=== PATIENT | male | born 1935 | race Caucasian/White ===

== ENCOUNTER 2017-01-15 02:47 | Observation (INO) | payer OTHER ==
--- NOTE | 2017-01-15 03:01 | CPEKG ---
Heart Rate: 69 RR Interval: 870 P-R Interval: 128 QRSD Interval: 88 QT Interval: 388 QTC Interval: 416 P [place]: 65 QRS [place]: -6 T Wave [place]: 15 EKG Severity - BORDERLINE ECG - EKG Impression: SINUS RHYTHM EKG Impression: BORDERLINE ST ELEVATION, ANTEROLATERAL LEADS Electronically Signed By: Caridad García 15-Jan-2017 09:14:12
--- NOTE | 2017-01-15 03:01 | EDPHY ---
H & P Time Seen by Provider: 01/15/17 02:58 HPI/ROS: HPI The patient presents with Chest pain which began at about 8 or 9:00 p.m. last night which occurred while sitting and has been constant ever since. It was initially severe though improved over the course of the evening and is now mild. The pain is worse with deep breaths, it does not radiate, it is described as an ache. He has never had pain like this before.He denies any nausea or vomiting. He denies any dizziness. REVIEW OF SYSTEMS Constitutional: No fever, no chills. Eyes: No discharge. ENT: No sore throat. Cardiovascular: + chest pain, no palpitations. Respiratory: No cough, no shortness of breath. Gastrointestinal: No abdominal pain, no vomiting. Genitourinary: No hematuria. Musculoskeletal: No back pain. Skin: No rashes. Neurological: No headache. PMHx: CAD with stent in place Had cardiac catheterization performed in November of 2014 which revealed CAD without any stent-able lesions Soc Hx: lives at home with his PHYSICAL General Appearance: [Alert, no distress] Eyes: [Pupils equal and round no pallor or injection] ENT, Mouth: [Mucous membranes moist] Respiratory: [There are no retractions, lungs are clear to auscultation] Cardiovascular: [ Regular rate and rhythm ] Gastrointestinal: [ Abdomen is soft and non-tender, no masses, bowel sounds normal ] Neurological: [ A&O, moves all extremities] Skin: [ Warm and dry, no rashes] Musculoskeletal: [Neck is supple non tender ] Extremities: [symmetrical, full range of motion ] Psychiatric: [ Patient is oriented X 3, there is no agitation ] Source: Patient, EMS - Personal History Tetanus Vaccine Date: 2010 - Medical/Surgical History Hx Cardiac Disease: Yes Other PMH: [place] stents. high cholesterol. back surgery. COPD - Social History Smoking Status: Former smoker Constitutional: Initial Vital Signs Temperature (C) 37 C 01/15/17 02:52 Heart Rate 78 01/15/17 02:52 Respiratory Rate 20 01/15/17 02:52 Blood Pressure 144/91 H 01/15/17 02:52 O2 Sat (%) 93 01/15/17 02:52 O2 Delivery Mode Nasal Cannula O2 (L/minute) 2 Allergies/Adverse Reactions: No Known Allergies Allergy (Verified 01/15/17 03:02) Home Medications: Medication Instructions Recorded Albuterol [Proventil Inhaler] 2 puffs IH BID 07/07/13 Levothyroxine [Synthroid 125 mcg 125 mcg PO DAILY06 07/07/13 (RX)] Mometasone/Formoterol [Dulera 200 2 puffs IH BID 07/07/13 Mcg/5 Mcg Inhaler] Aspirin [Aspirin 81mg (OTC)] 81 mg PO DAILY 11/06/14 Nitrostat 0.4 mg (*) 01/15/17 Ocuvite Eye + Multi Tablet 01/15/17 Pravastatin Sodium 01/15/17 Tamsulosin HCl 01/15/17 Medical Decision Making - Diagnostics EKG Interpretation: EKG: Complete interpretation has been separately recorded in the [employer] archive. Summary impression: diffuse upsloping ST segment elevations Imaging: chest x-ray one view shows no acute disease, interpreted by me, radiology interpretation is pending. ED Course/Re-evaluation: I met the paramedics at the bedside to obtain report, the patient received nitroglycerin and aspirin prior to arrival. His pain is improving. EKG was checked and shows diffuse ST segment elevations which are upsloping, this is a change from the patient's prior EKG which was reviewed by me. I was able to obtain old records from [facility] in [place] which show cardiac catheterization was performed in November of 2014 and demonstrated diffuse coronary artery disease, no stents were placed. Dr. Dominguez came to the emergency room to consult on the patient. He plans to take him emergently to the oil field laborer based on patient's history and EKG findings. We have discussed the case and the patient will be transferred. Differential Diagnosis: This is a 81-year-old male with history of CAD with LAD stent in place who presents brought in by ambulance for chest pain. on exam, he has normal vital signs, his chest pain is mostly improved, he has a normal physical exam. He comes in as a cardiac alert. Differential diagnosis includes ACS, dissection, GERD, pulmonary embolism. - Data Points Laboratory Results: Laboratory Results 01/15/17 02:55 01/15/17 02:55 01/15/17 01/15/17 02:55 02:55 WBC 8.89 10^3/uL 10^3/uL (3.80-9.50) RBC 4.94 10^6/uL 10^6/uL (4.40-6.38) Hgb 18.3 g/dL H g/dL (13.7-17.5) Hct 52.6 % H % (40.0-51.0) MCV 106.5 fL H fL (81.5-99.8) MCH 37.0 pg H pg (27.9-34.1) MCHC 34.8 g/dL g/dL (32.4-36.7) RDW 14.6 % % (11.5-15.2) Plt Count 125 10^3/uL L 10^3/uL (150-400) MPV 10.4 fL fL (8.7-11.7) Neut % (Auto) 76.0 % H % (39.3-74.2) Lymph % (Auto) 10.9 % L % (15.0-45.0) Caroline % (Auto) 11.2 % % (4.5-13.0) Eos % (Auto) 0.9 % % (0.6-7.6) Baso % (Auto) 0.6 % % (0.3-1.7) Nucleat RBC Rel Count 0.0 % % (0.0-0.2) Absolute Neuts (auto) 6.75 10^3/uL H 10^3/uL (1.70-6.50) Absolute Lymphs (auto) 0.97 10^3/uL L 10^3/uL (1.00-3.00) Absolute Monos (auto) 1.00 10^3/uL H 10^3/uL (0.30-0.80) Absolute Eos (auto) 0.08 10^3/uL 10^3/uL (0.03-0.40) Absolute Basos (auto) 0.05 10^3/uL 10^3/uL (0.02-0.10) Absolute Nucleated RBC 0.00 10^3/uL 10^3/uL (0-0.01) Immature Gran % 0.4 % % (0.0-1.1) Immature Gran # 0.04 10^3/uL 10^3/uL (0.00-0.10) Sodium 143 mEq/L mEq/L (134-144) Potassium 3.9 mEq/L mEq/L (3.5-5.2) Chloride 107 mEq/L mEq/L (97-110) Carbon Dioxide 26 mEq/l mEq/l (22-31) Anion Gap 10 mEq/L mEq/L (8-16) BUN 24 mg/dL H mg/dL (7-23) Creatinine 1.1 mg/dL mg/dL (0.7-1.3) Estimated GFR > 60 Glucose 85 mg/dL mg/dL (70-100) Calcium 8.6 mg/dL mg/dL (8.5-10.4) Troponin I 0.012 ng/mL ng/mL (0-0.034) Departure - Departure Disposition: To OP Cath/Surgery Clinical Impression: Acute coronary syndrome Chest pain Qualifiers: Chest pain type: unspecified Qualified Code(s): R07.9 - Chest pain, unspecified Condition: Fair
[2017-01-15] MEDS ORDERED: MIDAZOLAM 2 MG/2 ML VIAL ONE (03:06)
[2017-01-15] MEDS ORDERED: LIDOCAINE 1% 30 ML SDV ONE (03:06)
[2017-01-15] MEDS ORDERED: fentaNYL 100 MCG/2 ML INJ ONE (03:06)
--- NOTE | 2017-01-15 03:09 | CPEKG ---
Heart Rate: 71 RR Interval: 845 P-R Interval: 144 QRSD Interval: 88 QT Interval: 396 QTC Interval: 431 P [place]: 68 QRS [place]: -6 T Wave [place]: 6 EKG Severity - ABNORMAL ECG - EKG Impression: SINUS RHYTHM EKG Impression: ATRIAL PREMATURE COMPLEX EKG Impression: ST ELEVATION DIFFUSELY Electronically Signed By: Caridad García 15-Jan-2017 09:14:03
[2017-01-15 03:11] LABS: % IMMATURE GRANULYOCYTES 0.4 % (0.0-1.1); ABSOLUTE IMMATURE GRANULOCYTES 0.04 10^3/uL (0.00-0.10); ADD DIFF? NO; ADD MORPH? NO; ADD SCAN? NO; ATYPICAL LYMPHOCYTE FLAG 10 (0-99); FRAGMENT RBC FLAG 0 (0-99); HEMATOCRIT 52.6 % (40.0-51.0); HEMOGLOBIN 18.3 g/dL (13.7-17.5); LEFT SHIFT FLG 0 (0-99); LIPEMIA HEMOLYSIS FLAG 90 (0-99); MEAN CELL HEMOGLOBIN CONCENTR. 34.8 g/dL (32.4-36.7); MEAN CELL VOLUME 106.5 fL (81.5-99.8); MEAN PLATELET VOLUME 10.4 fL (8.7-11.7); PLATELET CLUMPS FLAG 10 (0-99); PLATELET COUNT 125 10^3/uL (150-400); RED BLOOD CELL COUNT 4.94 10^6/uL (4.40-6.38); RED CELL DISTRIBUTION WIDTH 14.6 % (11.5-15.2)
[2017-01-15 03:18] LABS: ANION GAP 10 mEq/L (8-16); CALCIUM 8.6 mg/dL (8.5-10.4); CARBON DIOXIDE 26 mEq/l (22-31); CHLORIDE 107 mEq/L (97-110); CREATININE 1.1 mg/dL (0.7-1.3); GLOMERULAR FILTRATION RATE > 60; GLUCOSE 85 mg/dL (70-100); POTASSIUM 3.9 mEq/L (3.5-5.2); SODIUM 143 mEq/L (134-144)
[2017-01-15] MEDS ORDERED: HEPARIN 10,000 UNIT/10 ML MDV ONE (03:38)
[2017-01-15] MEDS ORDERED: VERAPAMIL 5 MG/2 ML VIAL ONE ×2 (03:38→03:41)
[2017-01-15 03:45] LABS: TROPONIN I 0.012 ng/mL (0-0.034)
[2017-01-15] MEDS ORDERED: OXYCODONE/APAP 5/325 TAB PO PRN (03:58)
[2017-01-15] MEDS ORDERED: NITROGLYCERIN 0.4 MG BTL SL PRN (03:58)
[2017-01-15] MEDS ORDERED: ATROPINE SULFATE 1 MG/10 ML SYR IVP PRN (03:58)
[2017-01-15] MEDS ORDERED: ONDANSETRON 4 MG/2 ML VIAL IVP PRN (03:58)
[2017-01-15] MEDS ORDERED: HYDROCODONE/APAP 5/325 TAB PO PRN (03:58)
[2017-01-15] MEDS ORDERED: PANTOPRAZOLE SODIUM 40 MG TAB PO ONE (04:11)
--- NOTE | 2017-01-15 04:31 | CPIP ---
[f rep st] INVASIVE CARDIAC PROCEDURE DATE OF PROCEDURE: 01/15/2017 INDICATIONS: A 81-year-old man, with known coronary disease. Previous LAD stent in 2013. Now pres enting with sudden onset of substernal chest pain after drinking coffee. This was called as an ST-s egment elevation myocardial infarction by paramedics in the field, and cardiac alert was activated. The patient's pain has waxed and waned but is still present, but much less severe than previous. PROCEDURE PERFORMED: Left heart catheterization with left ventricular and selective coronary angiog herman via right radial approach. DESCRIPTION: Risks, benefits, and alternatives were described in detail and discussed with the marlene ent, and informed consent was obtained. Ritesh's test was performed and was normal. Patient was bro ught to the catheterization laboratory where a time-out was performed. Right wrist was sterilely pr epped and draped. 2% lidocaine utilized for local anesthetic. Six-Italian slender sheath placed rig ht radial utilizing micropuncture technique. Intra-arterial verapamil and intravenous heparin were administered. All catheters were exchanged over exchange length guidewire. 6-Italian JL4 and JR4 di agnostic catheters were utilized for coronary angiography, and pigtail catheter for left heart luis terization and left ventricular angiography. Sheath was removed and TR band was placed. HEMODYNAMICS: Please see cath lab tech flow sheet. LEFT VENTRICLE: The left ventricle is normal in size and shape. There were frequent PVCs but segme ntal wall motion appears normal, with ejection fraction of greater than 65%. No filling defects or significant mitral regurgitation. The aortic root and ascending aorta show some calcification, but no obvious dilation, aneurysm, or dissection. CORONARY ANGIOGRAPHY: Left main: The left main is a short large bifurcating vessel without signifi cant disease. Left anterior descending: The left anterior descending is a large vessel continuing all the way yunier und the apex, extending to the distal inferior wall. There is a mid stent that is widely patent. T here is a moderate proximal diagonal branch, 3 small to moderate mid diagonal branches, and a series of very small distal diagonal branches. The LAD has calcification and mild luminal irregularities, but no significant stenoses. The 1st diagonal branch has up to 40% to 50% proximal disease, but no other significant disease in the diagonal branches. Circumflex: This is a dominant vessel with a moderately large 1st obtuse marginal branch, a small t o moderate 2nd obtuse marginal branch, a large posterolateral branch, and a moderate posterior desce nding branch. The circumflex and its branches have calcified luminal irregularities up to 30%, but no significant stenoses. Right coronary: Moderate nondominant vessel with mild disease. IMPRESSION: 1. Elevated left ventricular end-diastolic pressure. 2. Normal left ventricular systolic function and segmental wall motion. 3. Patent left anterior descending stent. 4. Mild to moderate coronary disease and other branches and vessels without any significant stenose s. 5. No evidence of acute myocardial infarction. PLAN: 1. Hospital admission. 2. Check D-dimer due to history of pulmonary embolus. 3. Hospitalist consultation. 4. Aggressive risk modification. /[id number]/MODL
[2017-01-15 05:17] LABS: HEMATOCRIT 50.8 % (40.0-51.0)
[2017-01-15 05:55] LABS: ALANINE AMINOTRANSFERASE 39 IU/L (21-72); ALBUMIN 3.7 g/dL (3.5-5.0); ALKALINE PHOSPHATASE 54 IU/L (38-126); ASPARTATE AMINOTRANSFERASE 46 IU/L (17-59); BILIRUBIN,TOTAL 2.1 mg/dL (0.1-1.4); BILIRUBIN-CONJUGATED 0.5 mg/dL (0.0-0.5); BILIRUBIN-UNCONJUGATED 1.6 mg/dL (0.0-1.1); C-REACTIVE PROTEIN 54.6 mg/L (<10.0); CHOLESTEROL 132 mg/dL (140-220); CHOLESTEROL/HDL RATIO 2.93 RATIO (1.00-4.97); HIGH DENSITY LIPOPROTEIN 45 mg/dL (40-65); LDL/HDL RATIO 1.76 RATIO (1.00-3.64); LOW DENSITY LIPOPROTEIN 79 mg/dL (80-100); NON-HIGH DENSITY LIPOPROTEIN 87 mg/dL (90-129); TRIGLYCERIDE 43 mg/dL (40-150); VERY LOW DENSITY LIPOPROTEINS 8 mg/dL (8-25)
[2017-01-15 06:05] LABS: TROPONIN I 0.014 ng/mL (0-0.034)
[2017-01-15 06:10] LABS: CREATINE KINASE-MB FRACTION 3.59 ng/mL (0-3.19)
[2017-01-15 06:24] LABS: CK-MB INTERPRETATION NEGATIVE (NEGATIVE)
--- NOTE | 2017-01-15 06:47 | PDGENHP ---
History and Physical - Chief Complaint chest pain - History of Present Illness Patient is a 81-year-old male with a history of COPD, hypertension, hyperlipidemia and CAD (PCI in 2012) who presents to the ED with complaint of sharp chest pain. He states for the past 3 days he has been eating a low carb high fat / protein diet in an attempt to lose weight. Last night after dinner he also had a black coffee which is unusual for him. At around 8:00 p.m. he began noticing mid chest pain which she describes as sharp, worse with deep inspiration. The pain persisted throughout the night and by 2:00 a.m. was severe in nature so he decided to call EMS. Denies any associated dizziness, lightheadedness, palpitations, shortness of breath, nausea, diaphoresis. His EMS EKG was concerning so he was brought to the ED as a cardiac alert. On arrival to the ED patient was hemodynamically stable. Labs including CBC, BMP , troponin and ddimer were unremarkable. He was brought to the cardiac labor supervisor where he underwent catheterization via his right radial artery. Catheterization did not reveal any occlusive coronary disease. He was transferred to the telemetry floor with Hospital Medicine admission. History Information - Allergies/Home Medication List Allergies/Adverse Reactions: No Known Allergies Allergy (Verified 01/15/17 03:02) Home Medications: Albuterol [Proventil Inhaler] 2 puffs IH BID 07/07/13 [Last Taken 07/07/13 22:00 ] Levothyroxine [Synthroid 125 mcg (RX)] 125 mcg PO DAILY06 07/07/13 [Last Taken 07/07/13 06:00] Mometasone/Formoterol [Dulera 200 Mcg/5 Mcg Inhaler] 2 puffs IH BID 07/07/13 [ Last Taken 07/07/13 22:00] Aspirin [Aspirin 81mg (OTC)] 81 mg PO DAILY 11/06/14 [Last Taken Unknown] Nitrostat 0.4 mg (*) 01/15/17 [Last Taken Unknown] Ocuvite Eye + Multi Tablet 01/15/17 [Last Taken Unknown] Pravastatin Sodium 01/15/17 [Last Taken Unknown] Tamsulosin HCl 01/15/17 [Last Taken Unknown] I have personally reviewed and updated: family history, medical history, social history, surgical history - Past Medical History Additional medical history: COPD. hypertension. hyperlipidemia. CAD S/P PCI 2012. history of pulmonary embolism. history of atrial fibrillation S/P ablation, has been off systemic anticoagulation for about 3 years after recurrent epistaxis - Surgical History Additional surgical history: lumbar surgery - Family History Positive for: non-pertinent - Social History Smoking Status: Former smoker (smoked briefly in his 20s) Alcohol Use: Rarely Drug Use: None Additional social history: Patient lives independently with his , walks with a cane. Review of Systems ROS: 10pt was reviewed & negative except for what was stated in HPI & below Physical Exam Temp Pulse Resp BP Pulse Ox 36.8 C 68 25 H 137/78 H 94 01/15/17 04:13 01/15/17 06:00 01/15/17 06:00 01/15/17 06:00 01/15/17 06:00 O2 (L/minute) 2 Constitutional: no apparent distress, appears nourished, not in pain Eyes: PERRL, anicteric sclera, EOMI Ears, Nose, Mouth, Throat: moist mucous membranes, hearing normal, ears appear normal, no oral mucosal ulcers Cardiovascular: regular rate and rhythym, no murmur, rub, or gallop, pulses symmetric bilaterally, No JVD, No edema Peripheral Pulses: 2+: dorsalis-pedis (R), dorsalis-pedis (L) Respiratory: no respiratory distress, no rales or rhonchi, clear to auscultation Gastrointestinal: normoactive bowel sounds, soft, non-tender abdomen, no palpable masses Genitourinary: no bladder fullness, no bladder tenderness Skin: warm, normal color, no rashes or abrasions, no fluctuance, no induration, other (R radial pressure dressing in place), No mottled Musculoskeletal: full muscle strength, no muscle tenderness, normal joint ROM, no joint effusions Neurologic: AAOx3, sensation intact bilaterally, CN II-XII Intact, No weakness, No numbness, No pronator drift, No facial droop Psychiatric: interacting appropriately, not anxious, not encephalopathic, thought process linear Lab Data & Imaging Review 01/15/17 05:05 01/15/17 02:55 WBC 8.89 10^3/uL (3.80-9.50) 01/15/17 02:55 RBC 4.94 10^6/uL (4.40-6.38) 01/15/17 02:55 Hgb 18.3 g/dL (13.7-17.5) H 01/15/17 02:55 Hct 50.8 % (40.0-51.0) 01/15/17 05:05 MCV 106.5 fL (81.5-99.8) H 01/15/17 02:55 MCH 37.0 pg (27.9-34.1) H 01/15/17 02:55 MCHC 34.8 g/dL (32.4-36.7) 01/15/17 02:55 RDW 14.6 % (11.5-15.2) 01/15/17 02:55 Plt Count 125 10^3/uL (150-400) L 01/15/17 02:55 MPV 10.4 fL (8.7-11.7) 01/15/17 02:55 Neut % (Auto) 76.0 % (39.3-74.2) H 01/15/17 02:55 Lymph % (Auto) 10.9 % (15.0-45.0) L 01/15/17 02:55 Mcpherson % (Auto) 11.2 % (4.5-13.0) 01/15/17 02:55 Eos % (Auto) 0.9 % (0.6-7.6) 01/15/17 02:55 Baso % (Auto) 0.6 % (0.3-1.7) 01/15/17 02:55 Nucleat RBC Rel Count 0.0 % (0.0-0.2) 01/15/17 02:55 Absolute Neuts (auto) 6.75 10^3/uL (1.70-6.50) H 01/15/17 02:55 Absolute Lymphs (auto) 0.97 10^3/uL (1.00-3.00) L 01/15/17 02:55 Absolute Monos (auto) 1.00 10^3/uL (0.30-0.80) H 01/15/17 02:55 Absolute Eos (auto) 0.08 10^3/uL (0.03-0.40) 01/15/17 02:55 Absolute Basos (auto) 0.05 10^3/uL (0.02-0.10) 01/15/17 02:55 Absolute Nucleated RBC 0.00 10^3/uL (0-0.01) 01/15/17 02:55 Immature Gran % 0.4 % (0.0-1.1) 01/15/17 02:55 Immature Gran # 0.04 10^3/uL (0.00-0.10) 01/15/17 02:55 ESR 8 MM/HR (0-20) 01/15/17 05:05 D-Dimer 0.47 ug/mLFEU (0.00-0.50) 01/15/17 05:05 Sodium 143 mEq/L (134-144) 01/15/17 02:55 Potassium 3.9 mEq/L (3.5-5.2) 01/15/17 02:55 Chloride 107 mEq/L (97-110) 01/15/17 02:55 Carbon Dioxide 26 mEq/l (22-31) 01/15/17 02:55 Anion Gap 10 mEq/L (8-16) 01/15/17 02:55 BUN 24 mg/dL (7-23) H 01/15/17 02:55 Creatinine 1.1 mg/dL (0.7-1.3) 01/15/17 02:55 Estimated GFR > 60 01/15/17 02:55 Glucose 85 mg/dL (70-100) 01/15/17 02:55 Calcium 8.6 mg/dL (8.5-10.4) 01/15/17 02:55 Total Bilirubin 2.1 mg/dL (0.1-1.4) H 01/15/17 05:05 Conjugated Bilirubin 0.5 mg/dL (0.0-0.5) 01/15/17 05:05 Unconjugated Bilirubin 1.6 mg/dL (0.0-1.1) H 01/15/17 05:05 AST 46 IU/L (17-59) 01/15/17 05:05 ALT 39 IU/L (21-72) 01/15/17 05:05 Alkaline Phosphatase 54 IU/L (38-126) 01/15/17 05:05 Creatine Kinase 112 IU/L (0-224) 01/15/17 05:05 CK-MB (CK-2) Fraction 3.59 ng/mL (0-3.19) H 01/15/17 05:05 CK-MB (CK-2) % 3.2 % (0.0-4.0) 01/15/17 05:05 Creatine Kinase Interp NEGATIVE (NEGATIVE) 01/15/17 05:05 Troponin I 0.014 ng/mL (0-0.034) 01/15/17 05:05 C-Reactive Protein 54.6 mg/L (<10.0) H 01/15/17 05:05 NT-Pro-B Natriuret Pep 403 pg/mL (0-450) 01/15/17 05:05 Total Protein 6.0 g/dL (6.3-8.2) L 01/15/17 05:05 Albumin 3.7 g/dL (3.5-5.0) 01/15/17 05:05 Triglycerides 43 mg/dL (40-150) 01/15/17 05:05 Cholesterol 132 mg/dL (140-220) L 01/15/17 05:05 Cholesterol Risk Factr 0.5 (0.2-1.0) 01/15/17 05:05 LDL Cholesterol, Calc 79 mg/dL (80-100) L 01/15/17 05:05 LDL Risk Factor 0.8 (0.2-1.0) 01/15/17 05:05 VLDL Cholesterol 8 mg/dL (8-25) 01/15/17 05:05 Non-HDL Cholesterol 87 mg/dL (90-129) L 01/15/17 05:05 HDL Cholesterol 45 mg/dL (40-65) 01/15/17 05:05 LDL/HDL Ratio 1.76 RATIO (1.00-3.64) 01/15/17 05:05 Cholesterol/HDL Ratio 2.93 RATIO (1.00-4.97) 01/15/17 05:05 Lipase 207.0 IU/L (23-300) 01/15/17 05:05 TSH 3.490 uIU/mL (0.465-4.680) 01/15/17 05:05 Visualized and Interpreted Chest x-ray results: Yes Chest X-Ray results: no infiltrate, normal Visualized and Interpreted EKG results: Yes EKG Interpretation: Positive for: normal sinsus rhythm (with upsloping ST segments diffusely) Assessment & Plan Assessment: patient is a 81-year-old male with history of known CAD, hypertension, hyperlipidemia and COPD who presents to the ED with substernal chest pain appears pleuritic in nature which has been waxing and waning after dinner and drinking coffee. Patient arrived to the ED as a cardiac alert, underwent cardiac catheterization which revealed nonobstructive coronary artery disease. Plan: # chest pain Patient is symptoms and EKG were concerning for acute coronary syndrome so he was taken directly to the labor supervisor. Cardiac catheterization reveals nonobstructive coronary disease, with widely patent LAD stent. Troponins have remained negative x2. D-dimer is also negative, which has ruled out pulmonary embolism. Suspect symptoms are related to a GI etiology, as patient reports symptoms started after drinking black coffee and also reports recent high protein/fat and low carb diet. Will give PPI trial and monitor symptoms. Will also need to f/u official CXR read to r/o pulmonary infection/process, although low suspicion as patient has no respiratory symptoms, no leukocytosis and is afebrile. # COPD Respiratory status stable, confirm and continue home meds. # h/o atrial fibrillation s/p ablation Patient in NSR, reports has been in sinus rhythm since ablation and was taken off systemic anticoagulation several years ago due to recurrent epistaxis. Will confirm and continue home meds. # h/o pulmonary embolism Off systemic anticoagulation. D-dimer is negative, so low suspicion for PE as cause of his presenting symptoms. # chronic hypertension Cont home meds. # dispo: admit under observation # full code
[2017-01-15 08:54] VITALS: TEMP 97.7
[2017-01-15] MEDS ORDERED: MAALOX/LIDO/HYOSC GI COCKTAIL 55 ML BOTTLE PO ONE (11:13)
[2017-01-15] MEDS ORDERED: ALBUTEROL 60 PUFFS/8 GM MDI IH PRN (11:13)
[2017-01-15] MEDS ORDERED: TRIAMCINOLONE 0.025% 15 GM OINTTUBE TP PRN (11:13)
[2017-01-15] MEDS ORDERED: TAMSULOSIN HCL 0.4 MG CAP PO SCH (11:30)
[2017-01-15] MEDS ORDERED: PANTOPRAZOLE SODIUM 40 MG TAB PO SCH (11:30)
[2017-01-15 12:37] VITALS: BP 119/67; PULSE 83; RESP 20; O2SAT 91
--- NOTE | 2017-01-15 12:42 | ECHO ---
[id number] + + [address] : : [place] [address] : : [phone] + Adult Echocardiographic Report + -------+ :Name: CASS CHOWDHURY Date: 01/15/2017 10:04 AM BP: 128/74 mmH g : : Hospital Admission Number: [id number] Locati on: 247: :: 1935 Gender: Male Height: 75 in : :Age: 81 yrs Race: WH,White Weight: 252 lb : :Reason For Study: Continued chest pain after nl cath : : BSA: 2.4 meter s2 : :History: CP; nl cath : + -------+ MMode/2D Measurements \T\ Calculations IVSd: 1.1 cm LVIDd: 4.8 cm FS: 22.9 % Ao root diam: 2.9 cm LVPWd: 0.99 cm LVIDs: 3.7 cm EDV(Teich): 107.9 ml ESV(Teich): 58.3 ml EF(Teich): 46.0 % Normal Measurement Values: + + :LVIDd (3.5-5.7cm) IVSd (0.6-1.1cm) LVPWd (0.6-1.1cm) Aortic Root (2.0-3.7cm)Left Atrium (1.5-4.0cm): :LV Vol(d) (76-115ml) LV Vol(s) (29-48ml) Ejec Fraction (50-65%)PV Tommie (0.6- 1.2m/s) TV Tommie (0.4-1.0m/s) : :MV E Tommie (0.8-1.0m/s)MV A Tommie (0.3-1.0m/s)LVOT Tommie (0.7-1.2m/s) Asc Ao Tommie ( 0.9-1.8m/s) : + + Doppler Measurements \T\ Calculations MV E max tommie: Ao V2 max: LV V1 max: PA V2 max: 46.9 cm/sec 128.1 cm/sec 94.0 cm/sec 99.9 cm/sec MV A max tommie: Ao max P.6 mmHg LV V1 max PG: PA max P.6 cm/sec 3.5 mmHg 4.0 mmHg MV E/A: 0.70 MV dec time: 0.25 sec Left Ventricle The left ventricle is normal in size. There is mild concentric left ventricular hypertrophy. Left ventricular systolic function is low normal. Ejection Fraction = 45-50%. There is Doppler evidence for diastolic dysfunction. Regional wall motion abnormalities cannot be excluded due to limited visualization. Right Ventricle The right ventricle is not well visualized. The right ventricle is grossly normal size. Atria The left atrial size is normal. Right atrial size is normal. A dilated inferior vena cava suggests increased right atrial pressure. Mitral Valve The mitral valve is normal in structure and function. There is no mitral valve stenosis. There is no mitral regurgitation noted. Tricuspid Valve The tricuspid valve is normal in structure and function. There is no tricuspid stenosis. No tricuspid regurgitation. Aortic Valve The aortic valve is trileaflet. There is no aortic stenosis. There is no aortic insufficiency. Pulmonic Valve The pulmonic valve is normal in structure and function. Trace pulmonic valvular regurgitation. Great Vessels The aortic root is normal size. Pericardium/Pleural trivial pericardial effusion. Conclusion A two-dimensional transthoracic echocardiogram with M-mode and Doppler was performed. The study was technically difficult. Left ventricular systolic function is low normal. Ejection Fraction = 45-50%. There is Doppler evidence for diastolic dysfunction. There is mild concentric left ventricular hypertrophy. Trace pulmonic valvular regurgitation. trivial pericardial effusion. Final Reading Physician: David Ford signed on 01/15/2017 12:40 PM Ordering Physician: ALLYN BRADSHAW Performed By: Jenn Giron
[2017-01-15] MEDS ORDERED: KETOROLAC 30 MG/1 ML SDV IVP ONE (12:53)
--- NOTE | 2017-01-15 17:30 | PDDCSUM ---
Discharge Summary Discharge Summary: Dates of service: 01/15/2017 Discharge dx: # chest pain # ? pericarditis # gerd # CAD # h/o a fib # h/o PE Consultations: cardiology Procedures performed: left heart cath Hospital course by problem: # chest pain: concerning for unstable angina, trops neg and no sig ecg changes, take to cath with patent vessels, patent stent. ? mild pericarditis and pain improved with toradol. Dc with short course of toradol, f/u with cardiology # pericarditis: as above, exam not clearly c/w this dx however did have trivial pericardial effusion and improved sxs with nsaids. Will tx as such for now. No e /o chf or other acute issues related to same # gerd: also possibly contributing to acute presentation, started on ppi # CAD: as above, repeat cath showing widely patent lad stent, no significant new disease # h/o a fib/h/o PE: rate controlled, not on AC, dimer negative essentially ruling out PE DC home, f/u with Bo[facility] GROSSMAN and cardiology > 35 minutes spent in dc more than half in face to face counseling of patient and his regarding f/u care plans and likely etiology for chest pain
[2017-01-15] MEDS ORDERED: NON-FORMULARY NEW DRUG (Mometasone/Formoterol [Dulera 200 Mcg/5 Mcg Inhaler] 2 PUFFS) IH SCH (21:00)
[2017-01-15] MEDS ORDERED: DULERA IH SCH (21:00)
[2017-01-16] MEDS ORDERED: LEVOTHYROXINE 125 MCG TAB PO SCH (06:00)
[2017-01-16] MEDS ORDERED: PRAVASTATIN SODIUM 40 MG TAB PO SCH (09:00)
[2017-01-16] MEDS ORDERED: ASPIRIN 81 MG CHEWABLE TAB PO SCH (09:00)
[2017-01-16] MEDS ORDERED: PRESERVISION AREDS2 FORMULA EYE VIT 1 EACH PO SCH (09:00)
[2017-01-16] MEDS ORDERED: MULTIVITAMINS 1 EACH TAB PO SCH (09:00)
== END 2017-01-15 14:00 | disposition home or self-care (01) ==
LOC: EDUNIT# → EDBD → INTOOBSV 03:23 → F2N 03:50
PROVIDERS: ADMIT Internal Medicine Interventional Cardiology; ATTEND Internal Medicine
PROC: 4A023N7 Measurement of Cardiac Sampling and Pressure, Left Heart, Percutaneous Approach (ICD-10-PCS; principal; 2017-01-15)
PROC: B2111ZZ Fluoroscopy of Multiple Coronary Arteries using Low Osmolar Contrast (ICD-10-PCS; principal; 2017-01-15)
PROC: B2151ZZ Fluoroscopy of Left Heart using Low Osmolar Contrast (ICD-10-PCS; principal; 2017-01-15)
DX: R07.9 Chest pain, unspecified (principal); K21.9 Gastro-esophageal reflux disease without esophagitis; I25.10 Atherosclerotic heart disease of native coronary artery without angina pectoris; I51.7 Cardiomegaly; J44.9 Chronic obstructive pulmonary disease, unspecified; E78.5 Hyperlipidemia, unspecified; Z86.711 Personal history of pulmonary embolism; Z87.891 Personal history of nicotine dependence; Z86.79 Personal history of other diseases of the circulatory system; Z95.5 Presence of coronary angioplasty implant and graft
CPT/HCPCS: 71010; 93005; 93306; 93458; G0378; J1644; J1885; J2250; J3010

== ENCOUNTER 2018-07-31 14:48 | Inpatient (IN) | payer OTHER ==
[2018-07-31] MEDS ORDERED: NS 500 ML IV ONE ×2 (14:58→16:05)
--- NOTE | 2018-07-31 15:16 | EDPHY ---
H & P Stated Complaint: near syncope c epistaxis Time Seen by Provider: 07/31/18 14:53 HPI/ROS: CHIEF COMPLAINT: Epistaxis, near syncope HISTORY OF PRESENT ILLNESS: 83-year-old male presents after a near syncopal episode. He had an episode of epistaxis this morning at home and lost a significant amount of blood. He packed his nose with a cotton ball and placed nasal clip. The bleeding stopped. As he was getting off the couch just prior to arrival, he became very dizzy and weak and almost fainted. On EMS arrival, unable to obtain a blood pressure and he was very pale. No active epistaxis. He is currently feeling better, but continues to feel weak. History of multiple prior episodes of epistaxis related to Coumadin, now off Coumadin and only takes an aspirin daily. No black stool, bloody stool, recent illness, chest pain or shortness of breath. REVIEW OF SYSTEMS: complete 10 point ROS reviewed and is negative except for the noted elements in the HPI - Personal History Current Tetanus/Diphtheria Vaccine: Yes Tetanus Vaccine Date: 2010 - Medical/Surgical History Hx Asthma: Yes Hx Chronic Respiratory Disease: Yes Hx Diabetes: No Hx Cardiac Disease: Yes Hx Renal Disease: No Hx Cirrhosis: No Hx Alcoholism: No Hx HIV/AIDS: No Hx Splenectomy or Spleen Trauma: No Other PMH: OR stents. high cholesterol. back surgery. COPD - Social History Smoking Status: Former smoker Alcohol Use: Sober Additional Social History: - Physical Exam Exam: General Appearance: Alert, pleasant, talkative Eyes: Pupils equal and round, no conjunctival pallor or injection ENT, Mouth: Packing in left nostril and nasal clip in place Mucous membranes moist Neck: Normal inspection Respiratory: Rales at the bases Cardiovascular: Regular rate and rhythm Gastrointestinal: Abdomen is soft and nontender Neurological: A&O, nonfocal exam Skin: Warm and dry Extremities: Bilateral pedal edema Psychiatric: Mood and affect normal Constitutional: Initial Vital Signs Heart Rate 74 07/31/18 15:00 Respiratory Rate 18 07/31/18 15:00 Blood Pressure 90/64 L 07/31/18 15:00 O2 Sat (%) 97 07/31/18 15:00 O2 Delivery Mode Room Air O2 (L/minute) 8 Allergies/Adverse Reactions: No Known Allergies Allergy (Verified 07/31/18 15:00) Home Medications: Medication Instructions Recorded Levothyroxine [Synthroid 125 mcg 125 mcg PO DAILY06 07/07/13 (*)] Aspirin [Aspirin 81mg (*)] 81 mg PO DAILY 11/06/14 Albuterol [Proventil Inhaler HFA 1 - 2 puffs IH DAILY PRN 01/15/17 (*)] C/E/Zn/Cu/OM3/DHA/EPA/LUT/ZEAX 2 each PO DAILY 01/15/17 [Preservision Areds 2 Softgel] Nitroglycerin [Nitrostat 0.4 mg 0.4 mg SL Q5M PRN 01/15/17 (*)] Tamsulosin HCl [Flomax 0.4 MG (*)] 0.4 mg PO BID 01/15/17 Cyanocobalamin [Vitamin B12 (*)] 1,000 mcg PO DAILY 07/31/18 Digoxin [Lanoxin 0.125 mg] 0.125 mg PO HS 07/31/18 Fluticasone/Salmeter 500/50Mcg 1 puffs IH BID 07/31/18 [Advair 500/50 (*)] Lisinopril [Zestril 5 mg (*)] 5 mg PO DAILY 07/31/18 Metoprolol Succinate Xr [Toprol Xl 50 mg PO DAILY 07/31/18 50 mg (*)] Rosuvastatin Calcium [Crestor 20mg 20 mg PO DAILY 07/31/18 (*)] Spironolactone [Aldactone 25 MG 12.5 mg PO DAILY 07/31/18 (*)] buPROPion XL [Wellbutrin 150mg XL] 150 mg PO DAILY 07/31/18 predniSONE 2 mg PO DAILY 07/31/18 predniSONE 5 mg PO DAILY 07/31/18 Medical Decision Making - Diagnostics EKG Interpretation: EKG interpreted by me reveals normal sinus rhythm, rate 77, multiple PACs, no ST or T segment changes. Interpretation: Borderline EKG Imaging Results: Chest X-Ray 07/31/18 14:58 Impression: Patchy bilateral lower lung interstitial thickening/scarring. Cardiomegaly. Stable chest. Imaging: I viewed and interpreted images myself ED Course/Re-evaluation: This patient presents with a near syncopal episode after epistaxis this morning. Initial blood pressure is 93/67. IV normal saline 500 mL given. I removed the nasal packing and the pt blew a large clot out of his nose. No obvious site of bleeding and no active bleeding. I placed a long Merocel pack in the left nares. Will observe. 1600: remains hypotensive, 97/58, after IV NS 500ml. Will repeat 500ml NS bolus. After 2nd bolus, the patient was up to the bathroom and felt dizzy with ambulation. He continues to be slightly hypotensive. This is most likely secondary to the epistaxis this morning. There is no evidence acute illness, acute coronary syndrome, GI bleed or other etiology for hypotension. The hospitalist service was consulted for admission for observation. Differential Diagnosis: Includes though not limited to blood loss, infection, acute coronary syndrome, pulmonary embolism - Data Points Laboratory Results: Laboratory Results 08/01/18 04:02 08/01/18 04:02 Medications Given: Discontinued Medications Albuterol Sulfate (Proair Hfa Anes Only) 1 - 2 puffs IH DAILY PRN PRN Reason: Short of Breath/Dyspnea Stop: 01/27/19 18:25 Last Admin: 08/01/18 09:02 Dose: 1 puffs Albuterol/Ipratropium (Duoneb) 3 ml IH QID RAMESH Stop: 01/27/19 20:59 Last Admin: 07/31/18 20:53 Dose: 3 ml Aspirin (Aspirin) 81 mg PO DAILY RAMESH Stop: 01/28/19 08:59 Last Admin: 08/01/18 08:53 Dose: 81 mg Bupropion HCl (Wellbutrin Xl) 150 mg PO DAILY RAMESH Stop: 01/28/19 08:59 Last Admin: 08/01/18 08:54 Dose: 150 mg Bupropion HCl (Wellbutrin Xl) 150 mg PO DAILY RAMESH Stop: 01/28/19 08:59 Last Admin: 08/02/18 08:06 Dose: 150 mg Dexamethasone (Decadron Injection) 4 mg IVP Q6HRS RAMESH Stop: 01/28/19 00:00 Last Admin: 08/01/18 07:09 Dose: 4 mg Digoxin (Lanoxin) 125 mcg PO HS RAMESH Stop: 01/27/19 20:59 Last Admin: 07/31/18 21:19 Dose: 125 mcg Digoxin (Lanoxin) 125 mcg PO HS RAMESH Stop: 01/27/19 20:59 Last Admin: 08/01/18 22:20 Dose: 125 mcg Sodium Chloride (Ns) 500 mls @ 0 mls/hr IV EDNOW ONE; Wide Open PRN Reason: Protocol Stop: 07/31/18 14:59 Last Admin: 07/31/18 15:09 Dose: 500 mls Sodium Chloride (Ns) 500 mls @ 1,000 mls/hr IV EDNOW ONE PRN Reason: Protocol Stop: 07/31/18 16:34 Last Admin: 07/31/18 16:30 Dose: 500 mls Influenza Virus Vaccine Quadrival (Flulaval Quad [id number] (6mo+)) 0.5 ml IM .ONCE ONE Stop: 08/01/18 09:01 Last Admin: 08/01/18 09:00 Dose: 0.5 ml Levothyroxine Sodium (Synthroid) 125 mcg PO DAILY06 RAMESH Stop: 01/28/19 05:59 Last Admin: 08/01/18 07:09 Dose: 125 mcg Levothyroxine Sodium (Synthroid) 125 mcg PO DAILY06 RAMESH Stop: 01/28/19 05:59 Last Admin: 08/02/18 07:26 Dose: 125 mcg Lisinopril (Zestril) 5 mg PO DAILY RAMESH Stop: 01/28/19 08:59 Last Admin: 08/01/18 08:54 Dose: 5 mg Lisinopril (Zestril) 5 mg PO DAILY RAMESH Stop: 01/28/19 08:59 Last Admin: 08/02/18 08:07 Dose: 5 mg Metoprolol Succinate (Toprol Xl) 50 mg PO DAILY RAMESH Stop: 01/28/19 08:59 Last Admin: 08/01/18 08:53 Dose: 50 mg Metoprolol Succinate (Toprol Xl) 50 mg PO DAILY RAMESH Stop: 01/28/19 08:59 Last Admin: 08/02/18 08:08 Dose: 50 mg Multivitamins/Minerals (Preservision Areds2 Formula) 2 each PO DAILY RAMESH Stop: 01/28/19 08:59 Last Admin: 08/01/18 08:53 Dose: 2 each Multivitamins/Minerals (Preservision Areds2 Formula) 2 each PO DAILY RAMESH Stop: 01/28/19 08:59 Last Admin: 08/02/18 13:41 Dose: 2 each Pantoprazole Sodium (Protonix) 40 mg IVP BID RAMESH Stop: 01/28/19 10:29 Last Admin: 08/02/18 08:09 Dose: 40 mg Polyethylene Glycol/Electrolytes (Gavilyte - G) 4,000 ml PO ONCE ONE Stop: 08/01/18 18:46 Last Admin: 08/01/18 18:45 Dose: 4,000 ml Prednisone (Prednisone) 2 mg PO DAILY RAMESH Stop: 01/28/19 08:59 Last Admin: 08/01/18 09:20 Dose: Not Given Prednisone (Prednisone) 5 mg PO DAILY RAMESH Stop: 01/28/19 08:59 Last Admin: 08/01/18 09:20 Dose: Not Given Prednisone (Prednisone) 2 mg PO DAILY RAMESH Stop: 01/28/19 08:59 Last Admin: 08/02/18 13:42 Dose: 2 mg Prednisone (Prednisone) 5 mg PO DAILY RAMESH Stop: 01/28/19 08:59 Last Admin: 08/02/18 13:43 Dose: 5 mg Rosuvastatin Calcium (Crestor) 20 mg PO DAILY RAMESH Stop: 01/28/19 08:59 Last Admin: 08/01/18 08:55 Dose: 20 mg Rosuvastatin Calcium (Crestor) 20 mg PO DAILY RAMESH Stop: 01/28/19 08:59 Last Admin: 08/02/18 08:09 Dose: 20 mg Fluticasone/Salmeterol (Advair) 1 puffs IH BID RAMESH Stop: 01/27/19 20:59 Last Admin: 08/02/18 10:44 Dose: Not Given Spironolactone (Aldactone) 12.5 mg PO DAILY RAMESH Stop: 01/28/19 08:59 Last Admin: 08/01/18 08:55 Dose: 12.5 mg Spironolactone (Aldactone) 12.5 mg PO DAILY RAMESH Stop: 01/28/19 08:59 Last Admin: 08/02/18 13:45 Dose: 12.5 mg Tamsulosin HCl (Flomax) 0.4 mg PO BID RAMESH Stop: 01/27/19 20:59 Last Admin: 08/01/18 08:54 Dose: 0.4 mg Tamsulosin HCl (Flomax) 0.4 mg PO BID RAMESH Stop: 01/27/19 20:59 Last Admin: 08/02/18 08:10 Dose: 0.4 mg Vitamin B Complex (Vitamin B12) 1,000 mcg PO DAILY RAMESH Stop: 01/28/19 08:59 Last Admin: 08/01/18 08:54 Dose: 1,000 mcg Point of Care Test Results: Chemistry 07/31/18 15:00 POC Troponin I 0.00 ng/mL ng/mL (0.00-0.08) Departure - Departure Disposition: [facility] Inpatient Acute Clinical Impression: Epistaxis Hypotension Qualifiers: Hypotension type: other hypotension type Qualified Code(s): I95.89 - Other hypotension Condition: Fair
[2018-07-31 15:21] LABS: PLATELET COUNT 170 10^3/uL (150-400)
[2018-07-31] MEDS ORDERED: ONDANSETRON DISINTEGRATING 4 MG TAB PO PRN (18:24)
[2018-07-31] MEDS ORDERED: ALBUTEROL 3 ML DEYVIAL IH PRN (18:24)
[2018-07-31] MEDS ORDERED: HYDROCODONE/APAP 5/325 TAB PO PRN (18:24)
[2018-07-31] MEDS ORDERED: ONDANSETRON 4 MG/2 ML VIAL IVP PRN (18:24)
[2018-07-31] MEDS ORDERED: oxyCODONE IR 5 MG TAB PO PRN (18:24)
[2018-07-31] MEDS ORDERED: ACETAMINOPHEN 325 MG TAB PO PRN (18:24)
[2018-07-31] MEDS ORDERED: ALBUTEROL 60 PUFFS/8 GM MDI IH PRN (18:26)
--- NOTE | 2018-07-31 19:33 | CPEKG ---
Test Reason : OPEN Blood Pressure : / mmHG Vent. Rate : 077 BPM Atrial Rate : 145 BPM P-R Int : 162 ms QRS Dur : 088 ms QT Int : 394 ms P-R-T Axes : 053 012 017 degrees QTc Int : 446 ms Sinus rhythm Atrial premature complexes Confirmed by Sandra Naranjo ([id number]) on 07/31/2018 7:33:26 PM Referred By: Confirmed By:Sandra Naranjo
--- NOTE | 2018-07-31 19:51 | PDGENHP ---
History and Physical - Chief Complaint near syncope - History of Present Illness 83 yo M with PMH of CAD s/p PCI x 2 as well as a flutter s/p ablation, CHF with last EF of 30% as well as recurrent epistaxis in the past when on warfarin presenting with epistaxis at home followed by near syncopal event followed by continued profound weakness. Patient note that this morning he was in his usual states of health and shortly thereafter developed epistaxis which was not resolving despite putting cotton in his nose and holding pressure. He was sitting on the couch and went to stand up and was completely unable to stand, he felt briefly as if he might pass out and noted that everything in his vision went white. When he was still unable to stand for some time, his called 911. He notes that he did not have chest pain or palpitations during this event , he had no focal weakness or numbness, had no confusion or difficulty speaking. He is still feeling very weak and unable to stand. When he got to the ER he was noted to be hypotensive to the 90/50s and not very fluid responsive. He denies recent illness including fever or chills or urinary issues. He has been working with an nurse educator to taper off chronic steroids that it sounds like he has been on for the last several months for what sounds like a dubious diagnosis of adrenal insufficiency. History Information - Allergies/Home Medication List Allergies/Adverse Reactions: No Known Allergies Allergy (Verified 07/31/18 15:00) Home Medications: Levothyroxine [Synthroid 125 mcg (*)] 125 mcg PO DAILY06 07/07/13 [Last Taken ] Aspirin [Aspirin 81mg (*)] 81 mg PO DAILY 11/06/14 [Last Taken 07/31/18] Albuterol [Proventil Inhaler HFA (*)] 1 - 2 puffs IH DAILY PRN 01/15/17 [Last Taken Unknown] C/E/Zn/Cu/OM3/DHA/EPA/LUT/ZEAX [Preservision Areds 2 Softgel] 2 each PO DAILY [Last Taken 07/31/18] Nitroglycerin [Nitrostat 0.4 mg (*)] 0.4 mg SL Q5M PRN 01/15/17 [Last Taken 21:00 3 tabs] Tamsulosin HCl [Flomax 0.4 MG (*)] 0.4 mg PO BID 01/15/17 [Last Taken 07/31/18 09:00] Cyanocobalamin [Vitamin B12 (*)] 1,000 mcg PO DAILY 07/31/18 [Last Taken ] Digoxin [Lanoxin 0.125 mg] 0.125 mg PO HS 07/31/18 [Last Taken 07/30/18] Fluticasone/Salmeter 500/50Mcg [Advair 500/50 (*)] 1 puffs IH BID 07/31/18 [ Last Taken 07/31/18 09:00] Lisinopril [Zestril 5 mg (*)] 5 mg PO DAILY 07/31/18 [Last Taken 07/31/18] Metoprolol Succinate Xr [Toprol Xl 50 mg (*)] 50 mg PO DAILY 07/31/18 [Last Taken 07/31/18] Rosuvastatin Calcium [Crestor 20mg (*)] 20 mg PO DAILY 07/31/18 [Last Taken ] Spironolactone [Aldactone 25 MG (*)] 12.5 mg PO DAILY 07/31/18 [Last Taken 07/31] buPROPion XL [Wellbutrin Xl] 150 mg PO DAILY 07/31/18 [Last Taken 07/31/18] predniSONE 2 mg PO DAILY 07/31/18 [Last Taken 07/31/18] predniSONE 5 mg PO DAILY 07/31/18 [Last Taken 07/31/18] I have personally reviewed and updated: family history, medical history, social history, surgical history - Past Medical History atrial fibrillation, coronary artery disease, CHF, COPD, hypertension, hyperlipidemia, myocardial infarction, pulmonary embolism (previously on warfarin but d/c'ed given recurrent epistaxis) Additional medical history: pericarditis. hypothyroid. chronic prednisone use with ? adrenal insufficiency. history of atrial flutterS/P ablation. hypogonadism. peripheral neuropathy - Surgical History Reports: coronary stent Additional surgical history: lumbar surgery - Family History Positive for: non-pertinent - Social History Smoking Status: Former smoker Alcohol Use: Sober (previously heavy drinker) Drug Use: None Additional social history: Patient lives independently with his , walks with a cane. 1 child. Review of Systems Review of Systems: ROS: 10pt was reviewed & negative except for what was stated in HPI & below Physical Exam Physical Exam: Temp Pulse Resp BP Pulse Ox 36.7 C 99 20 108/70 93 07/31/18 18:30 07/31/18 18:30 07/31/18 18:30 07/31/18 18:33 07/31/18 18:30 Constitutional: not in pain, chronically ill appearing, obese Eyes: PERRL, anicteric sclera Ears, Nose, Mouth, Throat: moist mucous membranes, poor dentition, hard of hearing Cardiovascular: regular rate and rhythym, systolic murmur, edema Respiratory: no respiratory distress, no rales or rhonchi, reduced air movement Gastrointestinal: normoactive bowel sounds, soft, non-tender abdomen Genitourinary: no bladder tenderness Skin: warm, normal color Musculoskeletal: no muscle tenderness, asymmetric calves, generalized weakness Neurologic: AAOx3 Psychiatric: interacting appropriately, not anxious, not encephalopathic Lab Data & Imaging Review 07/31/18 14:58 07/31/18 14:58 WBC 14.75 10^3/uL (3.80-9.50) H 07/31/18 14:58 RBC 4.24 10^6/uL (4.40-6.38) L 07/31/18 14:58 Hgb 15.4 g/dL (13.7-17.5) 07/31/18 14:58 Hct 44.9 % (40.0-51.0) 07/31/18 14:58 MCV 105.9 fL (81.5-99.8) H 07/31/18 14:58 MCH 36.3 pg (27.9-34.1) H 07/31/18 14:58 MCHC 34.3 g/dL (32.4-36.7) 07/31/18 14:58 RDW 13.3 % (11.5-15.2) 07/31/18 14:58 Plt Count 170 10^3/uL (150-400) 07/31/18 14:58 MPV 11.0 fL (8.7-11.7) 07/31/18 14:58 Neut % (Auto) 72.3 % (39.3-74.2) 07/31/18 14:58 Lymph % (Auto) 16.9 % (15.0-45.0) 07/31/18 14:58 Dundy % (Auto) 8.3 % (4.5-13.0) 07/31/18 14:58 Eos % (Auto) 1.1 % (0.6-7.6) 07/31/18 14:58 Baso % (Auto) 0.7 % (0.3-1.7) 07/31/18 14:58 Nucleat RBC Rel Count 0.0 % (0.0-0.2) 07/31/18 14:58 Absolute Neuts (auto) 10.68 10^3/uL (1.70-6.50) H 07/31/18 14:58 Absolute Lymphs (auto) 2.49 10^3/uL (1.00-3.00) 07/31/18 14:58 Absolute Monos (auto) 1.22 10^3/uL (0.30-0.80) H 07/31/18 14:58 Absolute Eos (auto) 0.16 10^3/uL (0.03-0.40) 07/31/18 14:58 Absolute Basos (auto) 0.10 10^3/uL (0.02-0.10) 07/31/18 14:58 Absolute Nucleated RBC 0.00 10^3/uL (0-0.01) 07/31/18 14:58 Immature Gran % 0.7 % (0.0-1.1) 07/31/18 14:58 Immature Gran # 0.10 10^3/uL (0.00-0.10) 07/31/18 14:58 D-Dimer 0.56 ug/mLFEU (0.00-0.50) H 07/31/18 14:58 Sodium 142 mEq/L (135-145) 07/31/18 14:58 Potassium 4.7 mEq/L (3.3-5.0) 07/31/18 14:58 Chloride 110 mEq/L (97-110) 07/31/18 14:58 Carbon Dioxide 21 mEq/l (22-31) L 07/31/18 14:58 Anion Gap 11 mEq/L (8-16) 07/31/18 14:58 BUN 28 mg/dL (7-23) H 07/31/18 14:58 Creatinine 1.0 mg/dL (0.7-1.3) 07/31/18 14:58 Estimated GFR > 60 07/31/18 14:58 Glucose 139 mg/dL (70-100) H 07/31/18 14:58 Calcium 9.0 mg/dL (8.5-10.4) 07/31/18 14:58 POC Troponin I 0.00 ng/mL (0.00-0.08) 07/31/18 15:00 NT-Pro-B Natriuret Pep 1010 pg/mL (0-450) H 07/31/18 14:58 Visualized and Interpreted Chest x-ray results: Yes Chest X-Ray results: no infiltrate, other (patchy bilateral interstitial scarring) Visualized and Interpreted EKG results: Yes EKG Interpretation: Positive for: normal sinsus rhythm Assessment & Plan Assessment: Epistaxis (Acute) 83 yo M with MMI including CAD, A flutter, COPD, hx of PE and recurrent epistaxis presenting with near syncope and generalized weakness in the setting of hypotension # near syncope: with sxs of near syncope abating but patient remaining very weak , unable to ambulate. Differential is broad at this point--concern for cardiac arrhythmia--noted to be intermittently irregular on tele, significant cardiac hx of CHF, CAD. Will monitor on tele, serial trops, echocardiogram in am. Does have hx of PE and recurrent PE also a possibility (asymmetric calves as below). Will get BLE US and echo for now given lack of hypoxia, chest pain, tachycardia. # generalized weakness: out of proportion to severity of hypotension and epistaxis event. H/h stable. Noted patient is on chronic prednisone and note from endocrinology reviewed remarking that hx of adrenal insufficiency may be erroneous and working to taper pred off--patient unclear on details. Query acute adrenal crisis prompting weakness and hypotension as next. PT/OT to be involved, will give stress dose dexamethasone and obtain random am cortisol. # hypotension: in setting of above and not responding significantly to fluid, as above, ? adrenal crisis in setting of tapering chronic prednisone though electrolytes not suggestive of that. Dex as above, continue IVF, echo in am. No indication for pressors at this time. Nothing to suggest sepsis by history. # CAD: with hx of PCI x 2, continue asa, statin, BB. Echo in am, trending trops , monitoring on tele, cardiology consult requested for am. # chronic systolic heart failure: with prior EF of as low as 30%, previously thought to be both ischemic and non ischemic related to etoh abuse. Will repeat echo in am, does have lower extremity edema but otherwise appears fairly well compensated. Contine meds as above as well as lisinopril, aldactone # copd: without e/o acute exacerbation, is noted to have productive cough which patient states is stable for him, cxr stable, on RA # hx of PE: off of AC due to recurrent epistaxis, does have asymetric lower extremity edema, as above, echo/BLE US, holding off on CTA for now # epistaxis: s/p packing in ER--this will need to be removed in 48 hours # a flutter: s/p ablation, was having irregularity on tele and ? a fib, repeat ecg pending, continue tele monitoring, no AC as above, continue digoxin, will get tyesha level # observation status, given multiple active issues may in fact require IP stay but at this point suspect he will be ready to dc in am # DNR--reviewed with patient and his # patient new to my care. Old records reviewed and summarized as above. Care plan reviewed with ER doctor. Further hx obtained from present at bedside.
[2018-07-31] MEDS ORDERED: ALBUTEROL IH PRN (20:30)
[2018-07-31] MEDS ORDERED: MDI IH PRN (20:30)
[2018-07-31] MEDS: FLUTICASONE/SALMETER 500/50MCG DISKUS IH SCH (20:53)
[2018-07-31] MEDS ORDERED: DIGOXIN 125 MCG TAB PO SCH (21:00)
[2018-07-31] MEDS ORDERED: IPRATROPIUM/ALBUTEROL 3 ML DEYVIAL IH SCH (21:00)
[2018-07-31] MEDS: TAMSULOSIN HCL 0.4 MG CAP PO SCH (21:19)
[2018-07-31] MEDS ORDERED: IPRATROPIUM/ALBUTEROL 3 ML DEYVIAL IH PRN (21:53)
[2018-08-01] MEDS: DEXAMETHASONE 4 MG/ML VIAL IVP SCH ×2 (00:36→07:09)
[2018-08-01 04:54] LABS: PLATELET COUNT 136 10^3/uL (150-400)
[2018-08-01] MEDS ORDERED: LEVOTHYROXINE 125 MCG TAB PO SCH (06:00)
[2018-08-01] MEDS: TAMSULOSIN HCL 0.4 MG CAP PO SCH ×3 (08:54→22:20)
[2018-08-01] MEDS ORDERED: LISINOPRIL 5 MG TAB PO SCH (09:00)
[2018-08-01] MEDS ORDERED: SPIRONOLACTONE 25 MG TAB PO SCH (09:00)
[2018-08-01] MEDS ORDERED: buPROPion XL 150 MG TAB PO SCH (09:00)
[2018-08-01] MEDS ORDERED: predniSONE 5 MG TAB PO SCH (09:00)
[2018-08-01] MEDS ORDERED: METOPROLOL SUCCINATE XR 50 MG TAB PO SCH (09:00)
[2018-08-01] MEDS ORDERED: ASPIRIN 81 MG CHEWABLE TAB PO SCH (09:00)
[2018-08-01] MEDS ORDERED: predniSONE 1 MG TAB PO SCH (09:00)
[2018-08-01] MEDS ORDERED: CYANO/VITAMIN B12 1000 MCG TAB PO SCH (09:00)
[2018-08-01] MEDS ORDERED: ROSUVASTATIN CALCIUM 20 MG TAB PO SCH (09:00)
[2018-08-01] MEDS ORDERED: PRESERVISION AREDS2 FORMULA EYE VIT 1 EACH PO SCH (09:00)
[2018-08-01] MEDS: FLUTICASONE/SALMETER 500/50MCG DISKUS IH SCH ×2 (09:40→20:34)
--- NOTE | 2018-08-01 09:49 | ECHO ---
[email or web address] [address] [address] Main: [phone] Fax: Transthoracic Echocardiogram Name: CASS CHOWDHURY MR#: [id number] Study Date: 08/01/2018 Study Time: 07:40 AM Date of : 1935 Age: 83 year(s) Height: 190.5 cm (75 in.) Weight: 117.94 kg (260 lb.) BSA: 2.45 m2 Gender: Male Examination: Echo Indication: near syncope, hx of chf, hx of cad Image Quality: Technically Difficult Contrast: Requested by: Raulito Sanchez BP: 113 mmHg/71 mmHg Heart Rate: Rhythm: Indication: near syncope, hx of chf, hx of cad Procedure Staff Rewinder Operator: Arlette Tyler RDCS Reading Physician: Kp Ariza MD Requesting Provider: Conclusions: Normal size left ventricle. Borderline concentric LV hypertrophy. EF is 57 %. No regional wall motion abnormality. Mild mitral valve regurgitation is present. Trivial tricuspid valve regurgitation. Pulmonary artery pressure is not obtained due to inadequate TR jet. Trivial pericardial effusion. No significant change compared to 07/08/2013. Measurements: Chambers Valvular Assessment AV/MV Valvular Assessment TV/PV Normal Normal Normal Name Value Range Name Value Range Name Value Range Ao Gina (2D): 3.3 cm (1.4 cm-2.6 AV Vmax: 1.14 m/s (1 m/s-1.7 PV Vmax: 1.47 m/s (0.6 m/s-0.9 cm) m/s) m/s) IVSd (2D): 1.1 cm (0.6 cm-1.1 AV maxP mmHg ( - ) PV PGmax: 9 mmHg ( - ) cm) AV meanP mmHg ( - ) LVDd (2D): 4.5 cm (4.2 cm-5.9 SILVANO (VTI): 3.3 cm ( - ) cm) MV E Vmax: 0.40 m/s ( - ) LVDs (2D): 3.4 cm (2.1 cm-4 MV A Vmax: 0.55 m/s ( - ) cm) MV E/A: 0.73 ( - ) LVPWd (2D): 1.0 cm (0.6 cm-1 cm) MV PHT: 0.089 s ( - ) LVOTd 2.2 cm 2.2 cm mm MVA (PHT): 2.5 s ( - ) LVEF (BP): 57 % (>=55 %) RVDd(2D): 3.7 cm (1.9 cm-3.8 cmmm) Continued Measurements: Patient: CASS CHOWDHURY Study Date: 08/01/2018 Page 1 of 2 07:40 AM Chambers Valvular Assessment AV/MV Name Value Name Value LADs: 3.5 cm MV DecTime: 278 m/s LADs Lon.0 cm MV E' Septal: 0.07 m/s LA Area: 24.5 cm2 MV E/E' Septal: 5.50 LA Volume: 70 ml MV E/E' Lateral: 4.40 LA Volume Index: 28.6 ml/m2 RA Area: 21.3 cm2 Additional Vessels Name Value Ao Ascendin.8 cm Inferior Vena Cava: 1.9 cm Findings: Left Ventricle: Normal size left ventricle. Borderline concentric LV hypertrophy. Normal global systolic LV function. EF is 57 %. No regional wall motion abnormality. Difficult assessment of diastolic dysfunction due to arrhythmia. Right Ventricle: Normal size right ventricle. Normal RV function. Left Atrium: The left atrium is normal in size. Right Atrium: The right atrium is normal in size. Mitral Valve: The mitral valve is normal in appearance and function. Mild mitral valve regurgitation is present. No mitral stenosis is present. Aortic Valve: The aortic valve is tri-leaflet. There is no significant aortic valve regurgitation. No aortic valve stenosis is present. Tricuspid Valve: The tricuspid valve is normal in appearance and function. Trivial tricuspid valve regurgitation. Pulmonary artery pressure is not obtained due to inadequate TR jet. Pulmonic Valve: The pulmonic valve is normal in appearance and function. Aorta: The aorta is normal. Normal size aortic root measuring 3.3 cm. Normal size ascending aorta measuring 3.8 cm. IVC: The IVC is normal sized. Pericardium: Trivial pericardial effusion. There is pericardial fat. No pleural effusion. Exam Comments: Technically difficult imaging. (No Signature Object) Patient: CASS CHOWDHURY Study Date: 08/01/2018 Page 2 of 2 07:40 AM [id number]
[2018-08-01 09:51] LABS: INR 1.09 (0.83-1.16); PROTIME(PATIENT) 14.3 SEC (12.0-15.0)
--- NOTE | 2018-08-01 10:48 | ASMTLACE ---
HUSEYIN Comorbidities - select Answers: Chronic pulmonary disease all that apply Congestive heart failure Coronary Artery Disease Previous myocardial infarction Other Notes: A- fib, HTN, PE, Hypothyro id # of Emergency department Answers: 1-2 visits in the last 6 months Social determinants Answers: History of substance abuse (ETOH, street drugs, prescription drugs, etc.) Score: 12 Date Signed: 08/01/2018 10:48 AM Electronically Signed By:Chey Samuels RN
--- NOTE | 2018-08-01 10:56 | ASMTCMCOM ---
CM Note CM Note Notes: Patient admitted for a near syncopal episode of unknown etiology. He will have both a cardiology and GI workup. Patient is normally independent, lives with . He is refusing PT/OT, stating that he is independent in all ADLs. His only concerns are regarding his insurance coverage - I confirmed that [facility] is aware of his hospitalization, and I assured him that they would let us know if they wanted him transferred to a [facility] facility. Current CM Discharge plan: home independent Date Signed: 08/01/2018 10:55 AM Electronically Signed By:Briseida Castillo RN
[2018-08-01] MEDS ORDERED: PEG 3350/NA SULF,BICARB,CL/KCL (GAVILYTE-G) 4000 ML BTL PO ONE ×2 (11:33→18:45)
--- NOTE | 2018-08-01 12:03 | GCON ---
DATE OF CONSULTATION: 08/01/2018 REFERRING PHYSICIAN: Mike Whitt DO Dear Dr. Whitt: Thank you very kindly for asking me to evaluate the patient in consultation. CHIEF COMPLAINT: Of both melena and hematochezia. HISTORY OF PRESENT ILLNESS: He is a pleasant 83-year-old gentleman who was admitted to the hospital yesterday because of epistaxis and an episode of syncope. He describes trying to have a bowel moveme nt with straining and then nearly passed out on the toilet. There was evidence of hematochezia with that bowel movement. Subsequent movements have been somewhat black and tarry. His initial blood cou nt has fallen from a hematocrit of 44 to 37.5. His last colonoscopy was over 10 years ago and report edly normal. He takes a baby aspirin, but is on no other blood thinners. He has underlying coronary disease with a history of coronary stenting and COPD, which sounds like might be related to an occup ational lung disease from installing formaldehyde foam inserts. He does use breathing treatments rou tinely. He has had problems with lower extremity weakness and neuropathy from a spinal stenosis surg carlene and is pretty limited in his mobility at home. He does ambulate, but requires a walker for yvonne tance. We are asked to assist with further evaluation and management of the melena and hematochezia. PAST MEDICAL HISTORY: Significant for coronary artery disease with a history of coronary stenting. His last intervention in 2013 showed patent coronary stents. He has had atrial flutter with an ablat ion. 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 Congestive h eart failure related to myocardial infarction, history of pulmonary embolism, which he was on warfari n for but was stopped because of recurrent epistaxis. 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 PAST SURGICAL HISTORY: Coronary stenting, lower lumbar 3-level laminectomy, coronary ablation for at rial flutter. FAMILY HISTORY: Negative for colon cancer or bleeding disorders. MEDICATIONS: On admission include Synthroid, aspirin 81 mg a day, albuterol inhaler, Preservision ey edrops, nitroglycerin sublingual as needed, Flomax, vitamin B12, digoxin, lisinopril, metoprolol, Cre stor, Aldactone, Wellbutrin, prednisone between 2 and 5 mg daily. ALLERGIES: None reported. SOCIAL HISTORY: The patient lives independently with his , but says that she does provide most o f the care as he has a lot of exercise limitation due to weakness in his legs and exercise intoleranc e due to his cardiopulmonary disease. He used to smoke but not currently. 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 He ambulates with a cane. REVIEW OF SYSTEMS: CONSTITUTIONAL: Denies fever, chills, night sweats, or weight loss. HEENT: Rep orts epistaxis from the left nares, which has been packed. This has been recurrently a problem for h im. No headache. No visual disturbances. No sore throat. No trouble swallowing. PULMONARY: He h as chronic shortness of breath. He has difficulty lying completely flat. No recent cough. He belie ves his breathing is at baseline for him. He does need to use his inhalers. CARDIOVASCULAR: He had 1 episode of near syncope yesterday. Denies any palpitations, chest pain, and does report orthopnea . GI: Denies heartburn, dysphagia, hematemesis, nausea, anorexia, or abdominal pain. His bowel mov ements have been somewhat more constipated which is intermittently a problem for him. He does report fresh bright red blood as of yesterday, but none since. There is no active abdominal pain. No diar thomas. No recent antibiotic use. No personal history of colon polyps or cancer. He has never had an ischemic colitis. RHEUMATOLOGIC: Significant for chronic lower lumbar pain. NEUROLOGIC: He has p eripheral neuropathy and weakness in his legs which is chronic. He denies any bowel or bladder incon tinence. GENITOURINARY: No flank pain or dysuria. No hematuria. PHYSICAL EXAM: VITAL SIGNS: Blood pressure is 113/71 with a mean arterial pressure of 85, his heart rate is between 87 and 100, respirations are 12, oxygenation is 95% on room air. T-max is 36.8. GE NERAL: Elderly, somewhat chronically ill-appearing male but in no acute distress. HEENT: Neck supp le. Sclerae anicteric. There is blood around the nares with packing in the left nose. Oropharynx a lso has some dried blood in the back. The mucous membranes are dry. NECK: Supple. No adenopathy. No carotid bruit. LUNGS: Coarse breath sounds with rhonchus breathing and prolonged expiratory pha se. CARDIOVASCULAR: Regular rate and rhythm. I do not appreciate ectopy. It is rated about 100. There is perhaps a subtle systolic murmur at the left border, but not very loud. His heart sounds ar e distant. GI: Abdomen is obese, but soft. Normal bowel sounds. No tenderness, rebound, or guardi ng. No abdominal bruit. No palpable mass. EXTREMITIES: No cyanosis, no clubbing. Capillary refil l is normal. DERMATOLOGIC: He does have ecchymoses on the upper extremities, likely due to predniso ne use and capillary fragility. No palmar erythema. No spider angiomata. No jaundice. NEUROLOGIC: Alert to person, place, and time. Motor is nonfocal, but he does have a little bit of an unsteady gait. Cranial nerves are normal. DATABASE: Includes a white blood count of 9.5, hematocrit 37.5, platelets are 136. INR is 1.09 with a PT of 14.3. Sodium 139, potassium 4.8, chloride 113, bicarbonate 19, BUN is 50 with a creatinine of 0.8, glucose 119. Troponin was less than 0.012 x 3. His TSH was 7.5. BNP was 1010. A.m. cortis ol was low at 3.6. IMPRESSION: 1. Epistaxis. 2. Melena. 3. Hematochezia. 4. Coronary artery disease with congestive heart failure. 5. History of arrhythmia treated with ablation, sounds like a flutter. 6. Adrenal insufficiency, on prednisone. RECOMMENDATIONS: 1. Clear liquid diet today. 2. Split bowel prep with 1 gallon of Colyte. 2 L to be taken after a clear liquid dinner with 2 L a gain tomorrow morning to be finished with the prep by 9 a.m. 3. EGD to evaluate his melena. This may be related to epistaxis, but I think he does have risk fact ors, and it will be more important to interrogate the cause. 4. A colonoscopy will be arranged due to his hematochezia. This will be done at the time of the ___ to preserve him any further anesthesia other than the single event. 5. Anesthesia consultation for monitored anesthesia care. 6. N.p.o. after his clear liquid breakfast and bowel prep to be completed. 7. Serial hematocrits. 8. Stress dose hydrocortisone is recommended. 9. Further interventions depending on the findings. We will plan for his procedures at 11 a.m. /[id number]/MODL
[2018-08-01] MEDS: PANTOPRAZOLE SODIUM 40 MG VIAL IVP SCH ×2 (12:18→22:17)
--- NOTE | 2018-08-01 15:06 | HOSPPROG ---
Hospitalist Progress Note Assessment/Plan: 83 yo M with MMI including CAD, A flutter, COPD, hx of PE and recurrent epistaxis presenting with near syncope and generalized weakness in the setting of hypotension # GI Bleed - Patient admitted with sxs of near syncope - Patient had episode of melena and BRBPR overnight - Hgb decreased from 15 on admission to 12.8 this morning - Patient does have significant cardiac hx of CHF, CAD, no events on tele overnight, serial trops were negative - Also has a hx of PE, BLE US negative on admission, also lack of hypoxia, chest pain, tachycardia - GI consulted for further evaluation, they will perform EGD/Colonoscopy tomorrow - Started IV PPI BID this AM - Monitor CBC BID, transfused H/H <7/20 - Continue to monitor on telemetry # Hypotension - Improved this morning - Noted patient is on chronic prednisone, there was question of adrenal insufficiency, AM cortisol this morning 3.6 - S/p Dexamethasone, will transition back to home Prednisone - If hypotension or electrolyte abnormalities recur, may consider reinitiation of stress dose steroids - TTE from this AM with no significant changes from previous Chronic Issues: # CAD: with hx of PCI x 2, continue asa, statin, BB. # chronic systolic heart failure: with prior EF of as low as 30%, previously thought to be both ischemic and non ischemic related to etoh abuse. Continue meds as above as well as lisinopril, aldactone # copd: without e/o acute exacerbation, is noted to have productive cough which patient states is stable for him, cxr stable, on RA # hx of PE: off of AC due to recurrent epistaxis, does have asymetric lower extremity edema, as above, echo/BLE US, holding off on CTA # epistaxis: s/p packing in ER--this will need to be removed in 48 hours # a flutter: s/p ablation, continue tele monitoring, no AC as above, continue digoxin # DNR--reviewed with patient and his Dispo: Pending clinical course Subjective: Patient reports BRBPR overnight Objective: Vital Signs Temp Pulse Resp BP Pulse Ox 37.1 C 85 16 87/57 L 94 08/01/18 12:00 08/01/18 12:00 08/01/18 12:00 08/01/18 12:00 08/01/18 12:00 Laboratory Results 08/01/18 04:02 08/01/18 04:02 07/31/18 08/01/18 08/02/18 05:59 05:59 05:59 Intake Total 1450 Balance 1450 PT 14.3 SEC (12.0-15.0) 08/01/18 09:30 INR 1.09 (0.83-1.16) 08/01/18 09:30 - Physical Exam Constitutional: no apparent distress Eyes: PERRL Ears, Nose, Mouth, Throat: moist mucous membranes Cardiovascular: regular rate and rhythym Respiratory: no respiratory distress, clear to auscultation Gastrointestinal: soft, non-tender abdomen Genitourinary: no bladder tenderness Skin: warm Musculoskeletal: no muscle tenderness Neurologic: AAOx3 Psychiatric: interacting appropriately ICD10 Worksheet Patient Problems: Problems Problem Status Onset Epistaxis Acute Afib - Atrial fibrillation Active Chest pain Active Acute coronary syndrome Acute Chest pain Acute Claudication of right lower extremity Acute Peripheral artery disease Acute
--- NOTE | 2018-08-01 16:31 | PDMN ---
Medical Necessity Medical necessity: Change to inpt as of 08/01/18 @ 1610. Pt meets inpt criteria per MD order and MCG M-182, Gastrointestinal Bleeding, Lower A-2 days. 83 y/o admitted w/hypotension, near syncope, epistaxis initially, melena and hematochezia during night w/ Hct decreasing from 44.9 yesterday to 37.5 today and Hg 15.4 yesterday to 12.8 today, hypotensive this afternoon 72/53. Packing in ED for epistaxis, GI consult, EGD and colonoscopy planned for AM, IV PPI, close CBC monitoring, tele monitoring. Mult comorbidities including adv age, CAD , chronic syst heart failure, COPD. Anticipate>2MN for ongoing eval/management of above conditions.
[2018-08-01] MEDS: DIGOXIN 125 MCG TAB PO SCH ×3 (22:17→22:20)
[2018-08-02] MEDS ORDERED: LEVOTHYROXINE 125 MCG TAB PO SCH (06:00)
[2018-08-02] MEDS: PANTOPRAZOLE SODIUM 40 MG VIAL IVP SCH (08:09)
[2018-08-02] MEDS: TAMSULOSIN HCL 0.4 MG CAP PO SCH (08:10)
[2018-08-02] MEDS ORDERED: predniSONE 1 MG TAB PO SCH (09:00)
[2018-08-02] MEDS ORDERED: LISINOPRIL 5 MG TAB PO SCH (09:00)
[2018-08-02] MEDS ORDERED: buPROPion XL 150 MG TAB PO SCH (09:00)
[2018-08-02] MEDS ORDERED: predniSONE 5 MG TAB PO SCH (09:00)
[2018-08-02] MEDS ORDERED: PRESERVISION AREDS2 FORMULA EYE VIT 1 EACH PO SCH (09:00)
[2018-08-02] MEDS ORDERED: ASPIRIN 81 MG CHEWABLE TAB PO SCH (09:00)
[2018-08-02] MEDS ORDERED: SPIRONOLACTONE 25 MG TAB PO SCH (09:00)
[2018-08-02] MEDS ORDERED: METOPROLOL SUCCINATE XR 50 MG TAB PO SCH (09:00)
[2018-08-02] MEDS ORDERED: ROSUVASTATIN CALCIUM 20 MG TAB PO SCH (09:00)
[2018-08-02] MEDS: FLUTICASONE/SALMETER 500/50MCG DISKUS IH SCH (10:44)
[2018-08-02] MEDS ORDERED: LIDOCAINE 2% 2 ML INJ ONE (11:11)
[2018-08-02] MEDS ORDERED: DEXAMETHASONE 4 MG/ML VIAL ONE (11:11)
[2018-08-02] MEDS ORDERED: PROPOFOL 200 MG/20 ML VIAL ONE ×3 (11:12→11:37)
--- NOTE | 2018-08-02 11:15 | POSTANESTH ---
Post Anesthetic Evaluation Cardiovascular Status: Normal, Stable, Similar to Pre-Op Cond Respiratory Status: Normal, Stable, Similar to Pre-op Cond. Level of Consciousness/Mental Status: Can Participate in Eval, Mildly Sleepy, Arousable Pain Control: Adequate, Prn Tx Ordered Nausea/Vomiting Control: Adequate, Prn Tx Ordered Complications Possibly Related to Anesthesia: None Noted
--- NOTE | 2018-08-02 11:17 | PDANEPAE ---
ANE History of Present Illness 83 yo male with MMI now with GI bleed for endo/colonoscopy. ANE Past Medical History - Cardiovascular History Hx Hypertension: Yes Hx Arrhythmias: Yes Hx Coronary Artery / Peripheral Vascular Disease: Yes Hx CHF / Valvular Disease: Yes Cardiovascular History Comment: stents, most recent in 2013. ER 30% remotely, now 57% per ECHO yesterday. h/o PE - Pulmonary History Hx COPD: Yes Hx Asthma/Reactive Airway Disease: Yes Hx Oxygen in Use at Home: No Hx Sleep Apnea: No Sleep Apnea Screening Result - Last Documented: Positive - Endocrine History Hx Diabetes: No Hypothyroid: Yes Hyperthyroid: No Obesity: mild - Renal History Renal History Comment: adrenal insufficiency on steroids - Liver History Hx Hepatic Disorders: No - GI History Hx Gastrointestinal Disorders: Yes Gastrointestinal History Comment: GI bleed - Chronic Pain History Chronic Pain: No ANE Review of Systems Review of Systems: - Systems Gastrointestinal: Reports: black stools, blood streaked stools ANE Patient History - Allergies Allergies/Adverse Reactions: No Known Allergies Allergy (Verified 07/31/18 15:00) - Home Medications Home Medications: Levothyroxine [Synthroid 125 mcg (*)] 125 mcg PO DAILY06 07/07/13 [Last Taken ] Aspirin [Aspirin 81mg (*)] 81 mg PO DAILY 11/06/14 [Last Taken 07/31/18] Albuterol [Proventil Inhaler HFA (*)] 1 - 2 puffs IH DAILY PRN 01/15/17 [Last Taken Unknown] C/E/Zn/Cu/OM3/DHA/EPA/LUT/ZEAX [Preservision Areds 2 Softgel] 2 each PO DAILY [Last Taken 07/31/18] Nitroglycerin [Nitrostat 0.4 mg (*)] 0.4 mg SL Q5M PRN 01/15/17 [Last Taken 21:00 3 tabs] Tamsulosin HCl [Flomax 0.4 MG (*)] 0.4 mg PO BID 01/15/17 [Last Taken 07/31/18 09:00] Cyanocobalamin [Vitamin B12 (*)] 1,000 mcg PO DAILY 07/31/18 [Last Taken ] Digoxin [Lanoxin 0.125 mg] 0.125 mg PO HS 07/31/18 [Last Taken 07/30/18] Fluticasone/Salmeter 500/50Mcg [Advair 500/50 (*)] 1 puffs IH BID 07/31/18 [ Last Taken 07/31/18 09:00] Lisinopril [Zestril 5 mg (*)] 5 mg PO DAILY 07/31/18 [Last Taken 07/31/18] Metoprolol Succinate Xr [Toprol Xl 50 mg (*)] 50 mg PO DAILY 07/31/18 [Last Taken 07/31/18] Rosuvastatin Calcium [Crestor 20mg (*)] 20 mg PO DAILY 07/31/18 [Last Taken ] Spironolactone [Aldactone 25 MG (*)] 12.5 mg PO DAILY 07/31/18 [Last Taken 07/31] buPROPion XL [Wellbutrin Xl] 150 mg PO DAILY 07/31/18 [Last Taken 07/31/18] predniSONE 2 mg PO DAILY 07/31/18 [Last Taken 07/31/18] predniSONE 5 mg PO DAILY 07/31/18 [Last Taken 07/31/18] - NPO status NPO Since - Liquids (Date): 08/02/18 NPO Since - Liquids (Time): 08:15 NPO Since - Solids (Date): 08/01/18 - Anes Hx Anes Hx: no prior problems - Smoking Hx Smoking Status: Former smoker - Alcohol Use Alcohol Use: Occasionally (previously heavy drinker, now one drink per day) ANE Labs/Vital Signs - Labs Result Diagrams: 08/02/18 03:42 08/02/18 03:42 - Vital Signs Blood Pressure: 107/66 Heart Rate: 52 Respiratory Rate: 18 O2 Sat (%): 95 Height: 190.5 cm Weight: 118.3 kg ANE Physical Exam - Airway Neck exam: FROM Mallampati Score: Class 2 Mouth exam: poor dentition - Pulmonary Pulmonary: reduced air movement - Cardiovascular Cardiovascular: irregularly irregular - ASA Status ASA Status: III ANE Anesthesia Plan Anesthesia Plan: GA with mask Total IV Anesthesia: Yes
--- NOTE | 2018-08-02 11:17 | CPEKG ---
Test Reason : OPEN Blood Pressure : / mmHG Vent. Rate : 089 BPM Atrial Rate : 153 BPM P-R Int : 159 ms QRS Dur : 085 ms QT Int : 354 ms P-R-T Axes : 044 009 035 degrees QTc Int : 431 ms Sinus tachycardia Multiple premature complexes, vent & supraven Nonspecific repol abnormality, diffuse leads Confirmed by Kaci Segura ([id number]) on 08/02/2018 11:17:09 AM Referred By: Confirmed By:Kaci Segura
[2018-08-02] MEDS ORDERED: LR 500 ML IV PRN (11:34)
[2018-08-02] MEDS ORDERED: NALOXONE HCL 0.4 MG/ML INJ IVP PRN (11:34)
[2018-08-02] MEDS ORDERED: ACETAMINOPHEN 500 MG TAB PO PRN (11:34)
[2018-08-02] MEDS ORDERED: ALBUTEROL 3 ML DEYVIAL IH PRN (11:34)
--- NOTE | 2018-08-02 12:04 | GIREPORT ---
[facility] Surgical Services - Endoscopy Department Patient Name: Kwan Betancur Procedure Date: 08/02/2018 11:10 AM Patient Type: Inpatient Attending MD/ ER Physician: Joce Wolff MD Procedure: Upper GI endoscopy Indications: Acute post hemorrhagic anemia, Melena Patient Profile: 83 year old male with aspirin use presents for evaluation of melena/pos t hemorrhagic anemia. Providers: Joce Wolff MD Medicines: Monitored Anesthesia Care Complications: No immediate complications. Estimated blood loss: Minimal. Description of Procedure: After obtaining informed consent, the endoscope was passed under direct vision. Throughout the procedure, the patient's blood pressure, pulse, and oxygen saturations were monitored continuously. The Endoscope was intro duced through the mouth, and advanced to the second part of duodenum. The [facility] GI endoscopy was accomplished without difficulty. The patient tolerated th e procedure well. Findings: The examined esophagus was normal. Patchy mildly erythematous mucosa was found in the gastric body and in the gastric antrum. Biopsies were taken with a cold forceps for histology. A hiatal hernia was present. The examined duodenum was normal. Estimated Blood Loss: Estimated blood loss was minimal. Post Op Diagnosis: - Normal esophagus. - Erythematous mucosa in the gastric body and antrum. Biopsied. - Hiatal hernia. - Normal examined duodenum. - Etiology? No obvious cause of symptoms. Will proceed with colonoscopy . Recommendation: - Perform a colonoscopy today. - More recommendations on colonoscopy report. - Await pathology results. - Thank you for allowing me to participate in the care of your patient> Attending Participation: I personally performed the entire procedure. Joce Wolff MD Joce Wolff MD 08/02/2018 12:03:58 PM This report has been signed electronicallyJoce Wolff MD Number of Addenda: 0 Note Initiated On: 08/02/2018 11:10 AM [email or web address]
--- NOTE | 2018-08-02 12:09 | GIREPORT ---
[facility] Surgical Services - Endoscopy Department Patient Name: Kwan Betancur Procedure Date: 08/02/2018 11:12 AM Patient Type: Inpatient Attending MD/ ER Physician: Joce Wolff MD Procedure: Colonoscopy Indications: Hematochezia, Acute post hemorrhagic anemia Patient Profile: 83 year old male presents for evaluation of hematochezia/post hemorrhag ic anemia. Providers: Joce Wolff MD Medicines: Monitored Anesthesia Care Complications: No immediate complications. Estimated blood loss: Minimal. Description of Procedure: After obtaining informed consent, the scope was passed under direct vis ion. Throughout the procedure, the patient's blood pressure, pulse, and oxyg en saturations were monitored continuously. The Colonoscope with irrigatio n channel was introduced through the anus and advanced to the terminal il eum. The colonoscopy was performed without difficulty. The patient tolerated the procedure well. The quality of the bowel preparation was good. The ileo cecal valve, appendiceal orifice, and rectum were photographed. Findings: The perianal and digital rectal examinations were normal. Pertinent negatives include no palpable rectal lesions. Diverticula were found in the sigmoid colon, descending colon and trans verse colon. A 4 mm polyp was found in the transverse colon. The polyp was sessile. The polyp was removed with a cold snare. Resection and retrieval were compl ete. Two sessile polyps were found in the ascending colon. The polyps were 2 to 3 mm in size. These polyps were removed with a cold biopsy forceps. Resec tion and retrieval were complete. The terminal ileum appeared normal. Estimated Blood Loss: Estimated blood loss was minimal. Post Op Diagnosis: - Diverticulosis in the sigmoid colon, in the descending colon and in t he transverse colon. - One 4 mm polyp in the transverse colon, removed with a cold snare. Resected and retrieved. - Two 2 to 3 mm polyps in the ascending colon, removed with a cold biop sy forceps. Resected and retrieved. - The examined portion of the ileum was normal. - Etiology? No obvious cause seen. No active bleeding noted. Consider capsule endsocopy as outpatient. Recommendation: - [facility]. - Await pathology results. - To visualize the small bowel, consider performing video capsule endos copy as outpatient. - GI will sign off. - Thank you for the consultation! Attending Participation: I personally performed the entire procedure. Joce Wolff MD Joce Wolff MD 08/02/2018 12:09:16 PM This report has been signed electronicallyJoce Wolff MD Number of Addenda: 0 Note Initiated On: 08/02/2018 11:12 AM Total Procedure Duration Time 0 hours 19 minutes 28 seconds [email or web address]
[2018-08-02 12:34] VITALS: BP 117/80
--- NOTE | 2018-08-02 13:44 | GDS ---
DIAGNOSES: 1. Epistaxis. 2. Acute blood loss anemia secondary to epistaxis, stable. 3. Hypotension, resolved. 4. Chronic prednisone use, with likely secondary adrenal insufficiency. 5. Coronary artery disease status post percutaneous coronary intervention x2. 6. Chronic systolic heart failure with ejection fraction of 30%. 7. Chronic obstructive pulmonary disease, stable. 8. History of pulmonary embolus, off anticoagulation due to recurrent epistaxis, currently on baby a spirin. 9. Recurrent epistaxis. 10. Aflutter status post ablation, currently on digoxin and no anticoagulation due to above. PROCEDURES DONE: 1. Echocardiogram, EF 57% with no regional wall motion abnormalities. Normal size right ventricle a nd normal RV function. 2. Colonoscopy, one 4 mm polyp in the transverse column, two 2-3 mm polyps in the ascending colon. Pathology pending. 3. Upper endoscopy. No ulcer seen. No cause for bleeding noticed. 4. Extremity venous ultrasounds negative for DVT. CONSULTATIONS: Gastroenterology, Dr. Joce Wolff. HOSPITAL COURSE: Mr. Betancur is an 83-year-old man, with a complicated past medical history, who com es in with severe epistaxis. During his nosebleed he became lightheaded and dizzy and weak, so came into the emergency department where he had his nose packed. He was noted to be hypotensive at the [facility], so was admitted to the hospital for further evaluation and treatment. He had an echocardiogram d one and lower extremity Dopplers done, both of which were fairly unremarkable as to the cause of his hypotension and he had no evidence of right-sided strain to rule out likely pulmonary embolism. Over night, he started developing some hematochezia and melena. Because of that, GI was consulted and per formed an upper and lower endoscopy with the above findings. No cause for bleeding was found and I s uspect the bleeding was secondary to his nose bleed rather than an acute GI issue. On the day after his colonoscopy, he is feeling good. He is hungry, eating well. Blood pressure is normal and he wan ts to go home. He is currently having no symptoms. CONDITION ON DISCHARGE: Good. He is afebrile. Heart rate 59, blood pressure 117/80, 97% on room ai r. He is alert and oriented without concerns. DISCHARGE MEDICATIONS: Please see discharge medication form. He will resume his home meds. FOLLOWUP INSTRUCTIONS: He should follow up with [place]. Please send a copy of this to Dr. Pino at [facility]. TIME SPENT: Total time spent with patient on day of discharge and coordination of care is 35 minutes . Copy requested to: Dr. Pino [facility] /[id number]/MODL
--- NOTE | 2018-08-02 15:02 | PDIAF ---
- Diagnosis Diagnosis: nose bleed, CHF, afib, cad Code Status: Do Not Resuscitate - Medication Management Discharge Medications: Medications to Continue on Transfer Levothyroxine [Synthroid 125 mcg (*)] 125 mcg PO DAILY06 07/07/13 [Last Taken ] Aspirin [Aspirin 81mg (*)] 81 mg PO DAILY 11/06/14 [Last Taken 07/31/18] Albuterol [Proventil Inhaler HFA (*)] 1 - 2 puffs IH DAILY PRN 01/15/17 [Last Taken Unknown] C/E/Zn/Cu/OM3/DHA/EPA/LUT/ZEAX [Preservision Areds 2 Softgel] 2 each PO DAILY [Last Taken 07/31/18] Nitroglycerin [Nitrostat 0.4 mg (*)] 0.4 mg SL Q5M PRN 01/15/17 [Last Taken 21:00 3 tabs] Tamsulosin HCl [Flomax 0.4 MG (*)] 0.4 mg PO BID 01/15/17 [Last Taken 07/31/18 09:00] Cyanocobalamin [Vitamin B12 (*)] 1,000 mcg PO DAILY 07/31/18 [Last Taken ] Digoxin [Lanoxin 0.125 mg] 0.125 mg PO HS 07/31/18 [Last Taken 07/30/18] Fluticasone/Salmeter 500/50Mcg [Advair 500/50 (*)] 1 puffs IH BID 07/31/18 [ Last Taken 07/31/18 09:00] Lisinopril [Zestril 5 mg (*)] 5 mg PO DAILY 07/31/18 [Last Taken 07/31/18] Metoprolol Succinate Xr [Toprol Xl 50 mg (*)] 50 mg PO DAILY 07/31/18 [Last Taken 07/31/18] Rosuvastatin Calcium [Crestor 20mg (*)] 20 mg PO DAILY 07/31/18 [Last Taken ] Spironolactone [Aldactone 25 MG (*)] 12.5 mg PO DAILY 07/31/18 [Last Taken 07/31] buPROPion XL [Wellbutrin 150mg XL] 150 mg PO DAILY 07/31/18 [Last Taken 07/31/18 ] predniSONE 2 mg PO DAILY 07/31/18 [Last Taken 07/31/18] predniSONE 5 mg PO DAILY 07/31/18 [Last Taken 07/31/18] Discharge Medications: Refer to the Discharge Home Medication list for PRN reason. - Orders Services needed: Home Care, Registered Nurse, Physical Therapy Home Care Face to Face: I certify that this patient was under my care and that I had the required [id number] encounter meeting the encounter requirements on the discharge day. My findings support the fact that the patient is homebound as defined in Home Care Face to Face Continued: CMS Chapter 7 Medicare Benefits Manual 30.1.1 , The condition of the patient is such that there exists a normal inability to leave home and consequently, leaving home would require a considerable and taxing effort. Diet Recommendation: no restrictions on diet Diet Texture: Regular Texture Diet Additional Instructions: Follow up with your regular doctor next week for follow up. - Follow Up Care Current Providers and Referrals: MARIA R EUCEDA [Other] - As per Instructions
--- NOTE | 2018-08-02 15:31 | ASDISCHSUM ---
Discharge Information Plan Status:Home with Home Health Medically Cleared to Leave:08/02/2018 Discharge Date:08/02/2018 02:57 PM D/C Disposition:Home Health Service [facility] D/C Disposition:Home, Routine, Self-Care Projected Discharge Date:08/02/2018 11:00 AM Transportation at D/C:Family Discharge Delay Reason: Follow-Up Date:08/02/2018 11:00 AM Discharge Slot: Final Diagnosis: Placement Information Referral Type:*Home Health Care Services Referral ID:[id number] Provider Name:[facility] (formerly [facility]) Address 1[address] [address] Address 2: City:[place] Selection Factors: State:[place] Patient Contact Information Contact Name:SYDNIEMARIA G Relationship: Address:[address] City:[place] Alternate Phone: State/Zip Code:[place] [address] Email: Financial Information Financial Class:Medicare Advantage Plans Primary Plan Desc:[facility] MEDICARE ADVANTAGE OUTPAT Primary Plan Number:[id number] Secondary Plan Desc: Secondary Plan Number: Assessment Information LACE LACE Comorbidities - select Answers: Chronic pulmonary disease all that apply Congestive heart failure Coronary Artery Disease Previous myocardial infarction Other Notes: A- fib, HTN, PE, Hypothyro id # of Emergency department Answers: 1-2 visits in the last 6 months Social determinants Answers: History of substance abuse (ETOH, street drugs, prescription drugs, etc.) Score: 12 Date Signed: 08/01/2018 10:48 AM Electronically Signed By:Chey Samuels RN [facility] CM Progress Note CM Note CM Note Notes: Patient admitted for a near syncopal episode of unknown etiology. He will have both a cardiology and GI workup. Patient is normally independent, lives with . He is refusing PT/OT, stating that he is independent in all ADLs. His only concerns are regarding his insurance coverage - I confirmed that [facility] is aware of his hospitalization, and I assured him that they would let us know if they wanted him transferred to a [facility] facility. Current CM Discharge plan: home independent Date Signed: 08/01/2018 10:55 AM Electronically Signed By:Briseida Castillo RN Case Management Discharge Plan Note Case Management Discharge Discharge Order Complete? Answers: Yes Patient to Obtain Answers: via Family Medications Transportation Arranged Answers: Family/Friends Faxed Final Orders Answers: Yes Agency/Facility Transfer Answers: Yes Report Printed & Faxed to Receiving Agency Family Notified Answers: Yes Notes: in room Discharge Comments Notes: 08/02/2018 Case Management Note Met w/pt and Erika [phone]. Son Ravi can be reached at [phone]. PT recommending homecare. Confirmed with [facility]. Faxed referral to [facility]. [facility] accepted pt. Faxed final orders. Discharge: home with [facility] PT RN Date Signed: 08/02/2018 03:30 PM Electronically Signed By:Alyse Sawant RN Intervention Information Intervention Type:TACO-Signed Date of Service:08/01/2018 04:26 PM Patient Type:Observation Staff Member:EMMY Samuels, Chey Hours: Discipline: Severity: Comment:
== END 2018-08-02 14:57 | disposition home or self-care (01) | DRG 812 ==
LOC: EDUNIT# → F2W 18:15 → OBSVTOIN 08-01 16:10
PROVIDERS: ADMIT Internal Medicine; ATTEND Internal Medicine
PROC: 0DB78ZX Excision of Stomach, Pylorus, Via Natural or Artificial Opening Endoscopic, Diagnostic (ICD-10-PCS; principal; 2018-08-02 11:00)
PROC: 0DB68ZX Excision of Stomach, Via Natural or Artificial Opening Endoscopic, Diagnostic (ICD-10-PCS; principal; 2018-08-02 11:00)
PROC: 0DBK8ZX Excision of Ascending Colon, Via Natural or Artificial Opening Endoscopic, Diagnostic (ICD-10-PCS; principal; 2018-08-02 11:00)
PROC: 0DBL8ZX Excision of Transverse Colon, Via Natural or Artificial Opening Endoscopic, Diagnostic (ICD-10-PCS; principal; 2018-08-02 11:00)
DX: D62 Acute posthemorrhagic anemia (principal); R04.0 Epistaxis; I95.9 Hypotension, unspecified; E27.3 Drug-induced adrenocortical insufficiency; T38.0X5A Adverse effect of glucocorticoids and synthetic analogues, initial encounter; K92.1 Melena; I25.10 Atherosclerotic heart disease of native coronary artery without angina pectoris; I50.22 Chronic systolic (congestive) heart failure; J44.9 Chronic obstructive pulmonary disease, unspecified; Z79.52 Long term (current) use of systemic steroids; Z95.5 Presence of coronary angioplasty implant and graft; Z86.711 Personal history of pulmonary embolism; Z79.82 Long term (current) use of aspirin; Z66 Do not resuscitate; Z23 Encounter for immunization
CPT/HCPCS: 84484-PO; 97161-GP; 97530-GP; G0008; G0378; G8978-GP-CJ; G8979-GP-CI; J1100; J2704